=== PATIENT | male | born 1995 | race Caucasian/White ===

== ENCOUNTER 2016-07-07 16:49 | Emergency (ER) | payer MEDICAID ==
[~2016-07-07] VITALS: Ht 185.4 cm; Wt 72.6 kg
--- NOTE | 2016-07-07 16:50 | NUR ---
BIB Officer in custody for medical clearance. Patient to ER bed H for evaluation. Side rails up.
[2016-07-07 16:52] VITALS: BP 147/72; PULSE 79; RESP 16; TEMP 98.1; O2SAT 98
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
--- NOTE | 2016-07-07 16:58 | NUR ---
ER MD Betts at bedside evaluating the patient
[2016-07-07 17:54] VITALS: BP 131/72; PULSE 76; RESP 17; TEMP 98.1; O2SAT 99
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
== END 2016-07-07 17:54 ==
LOC: SED 16:49
DX: S60.222A Contusion of left hand, initial encounter (principal); S60.221A Contusion of right hand, initial encounter; X58.XXXA Exposure to other specified factors, initial encounter; Y93.89 Activity, other specified; Y92.89 Other specified places as the place of occurrence of the external cause; Y99.8 Other external cause status
CPT/HCPCS: 99284